=== PATIENT | female | born 1940 | race Two or more races ===

== ENCOUNTER → 2019-05-31 | Outpatient (CLI) | payer MEDICARE | LOC: LAB 20:19 | PROVIDERS: ATTEND Nurse Practitioner Acute Care | DX: R30.0 Dysuria (principal) | CPT/HCPCS: 87086; 87088; 87186 ==

== ENCOUNTER → 2019-08-14 | Outpatient (CLI) | payer MEDICARE, BC, OTHER | LOC: LAB 19:41 | PROVIDERS: ATTEND Nurse Practitioner Family | DX: R30.0 Dysuria (principal); R82.71 Bacteriuria | CPT/HCPCS: 87086; 87088; 87186 ==

== ENCOUNTER → 2020-01-07 | Outpatient (CLI) | payer BC, MEDICARE, OTHER | LOC: RAD 15:25 | PROVIDERS: ATTEND Nurse Practitioner Acute Care | DX: R30.0 Dysuria (principal) | CPT/HCPCS: 87086; 87088; 87186 ==